=== PATIENT | female | born 1985 | race Caucasian/White ===

== ENCOUNTER 2023-03-29 13:45 | Outpatient (CLI) | payer OTHER | END 2023-03-29 13:46 | disposition home or self-care (01) | LOC: SCSRAD 13:45 | PROVIDERS: ATTEND Family Medicine | DX: S69.92XA Unspecified injury of left wrist, hand and finger(s), initial encounter (principal) ==

== ENCOUNTER 2023-05-05 07:40 | Outpatient (CLI) | payer OTHER | END 2023-05-05 07:41 | disposition home or self-care (01) | LOC: DTY/OP 07:40 | PROVIDERS: ATTEND Family Medicine | DX: N18.4 Chronic kidney disease, stage 4 (severe) (principal) | CPT/HCPCS: 97802 ==